=== PATIENT | male | born 1975 ===

== ENCOUNTER 2017-11-12 01:26 | Emergency (ER) | payer SELFPAY ==
--- NOTE | 2017-11-12 02:01 | C.PDOC ---
History Of Present Illness Patient brought to ED for public intoxication. Patient admits to drinking today. Denies any physical complaints. Time Seen by Provider: 11/12/17 01:59 Chief Complaint (Nursing): Substance Abuse History Per: Patient History/Exam Limitations: no limitations Onset/Duration Of Symptoms: Hrs Current Symptoms Are (Timing): Still Present Suicide/Self Injury Attempted (Context): None Modifying Factor(s): Alcohol Associated Symptoms: denies: Suicidal Thoughts, Suicidal Plan Involuntary Hold By: None Recent travel outside of the [place]: No Past Medical History Reviewed: Historical Data, Nursing Documentation, Vital Signs Vital Signs: Last Vital Signs Temp 98.3 F 11/12/17 02:03 Pulse 88 11/12/17 02:18 Resp 18 11/12/17 02:18 BP 142/86 11/12/17 02:18 Pulse Ox 100 11/12/17 02:18 - Medical History PMH: No Chronic Diseases Surgical History: No Surg Hx Family History: States: No Known Family Hx - Social History Hx Alcohol Use: Yes Hx Substance Use: No - Immunization History Hx Tetanus Toxoid Vaccination: No Hx Influenza Vaccination: No Hx Pneumococcal Vaccination: No Review Of Systems Constitutional: Negative for: Fever, Chills Respiratory: Negative for: Shortness of Breath Gastrointestinal: Negative for: Nausea, Vomiting, Diarrhea Neurological: Negative for: Weakness, Numbness Psych: Negative for: Suicidal ideation Physical Exam - Physical Exam Appears: Non-toxic, No Acute Distress, Other Skin: Warm, Dry Head: Normacephalic Eye(s): bilateral: Normal Inspection Oral Mucosa: Moist Neck: Supple Chest: Symmetrical, No Tenderness Cardiovascular: Rhythm Regular Respiratory: No Decreased Breath Sounds, No Rales, No Rhonchi, No Wheezing Gastrointestinal/Abdominal: Soft, No Tenderness, No Distention Neurological/Psych: Oriented x3, Normal Speech, Normal Cognition ED Course And Treatment O2 Sat by Pulse Oximetry: 100 Pulse Ox Interpretation: Normal Progress Note: went to re-eval the pt, but pt had eloped. Disposition Counseled Patient/Family Regarding: Studies Performed, Diagnosis, Need For Followup - Disposition Referrals: [facility] [Outside] Disposition: ELOPEMENT - ER ONLY Disposition Time: 02:00 Condition: FAIR Instructions: Alcohol Abuse and Alcoholism (DC) Forms: DPSI (Liberian) - Clinical Impression Clinical Impression: Alcohol intoxication - Scribe Statement The provider has reviewed the documentation as recorded by the Raymondibe Letitia Aguilar All medical record entries made by the Raymondiblonnie were at my direction and personally dictated by me. I have reviewed the chart and agree that the record accurately reflects my personal performance of the history, physical exam, medical decision making, and the department course for this patient. I have also personally directed, reviewed, and agree with the discharge instructions and disposition.
[2017-11-12 02:09] VITALS: RESP 18; TEMP 98.3
[2017-11-12 03:05] VITALS: BP 142/86; PULSE 88; O2SAT 100
== END 2017-11-12 03:16 | disposition left against medical advice (07) ==
LOC: C.ER 01:26
DX: F10.129 Alcohol abuse with intoxication, unspecified (principal)